=== PATIENT | female | born 1980 | race Two or more races ===

== ENCOUNTER 2021-02-19 11:08 | Outpatient (CLI) | payer OTHER | END 2021-02-19 11:16 | disposition home or self-care (01) | LOC: RAD 11:08 | PROVIDERS: ATTEND Urology | DX: N20.1 Calculus of ureter (principal) ==

== ENCOUNTER 2022-02-24 08:00 | Inpatient (IN) | payer OTHER ==
[~2022-02-24] VITALS: Ht 162.6 cm; Wt 62.1 kg
[2022-02-24] MEDS ORDERED: MULTIPLE VITAM1 EAC2 PO (09:24)
[2022-02-24] MEDS ORDERED: VITAMIN C100 MG PO (09:24)
[2022-02-24] MEDS ORDERED: IRON236 MG PO (09:24)
[2022-02-24] MEDS ORDERED: D3 + K2 DOTS 11 EACH PO (09:24)
[2022-02-28] MEDS ORDERED: NAPR500T14 PO (08:00)
[2022-02-28] MEDS ORDERED: Tylenol #3 PO (08:00)
== END 2022-02-28 10:41 | disposition home or self-care (01) | DRG 743 ==
LOC: O/R 02-25 07:04 → OB/GYN 02-25 08:00
PROVIDERS: ADMIT Student in an Organized Health Care Education/Training Program; ATTEND Student in an Organized Health Care Education/Training Program
PROC: 0UT70ZZ Resection of Bilateral Fallopian Tubes, Open Approach (ICD-10-PCS; 2022-02-25)
PROC: 0TJB8ZZ Inspection of Bladder, Via Natural or Artificial Opening Endoscopic (ICD-10-PCS; 2022-02-25)
PROC: 0UT90ZZ Resection of Uterus, Open Approach (ICD-10-PCS; principal; 2022-02-25 14:30)
DX: D25.1 Intramural leiomyoma of uterus (principal); Z20.822 Contact with and (suspected) exposure to COVID-19; D25.0 Submucous leiomyoma of uterus